=== PATIENT | male | born 1980 | race Caucasian/White ===

== ENCOUNTER 2019-03-13 10:47 | Emergency (ER) | payer SELFPAY ==
[~2019-03-13] VITALS: Ht 167.6 cm; Wt 72.0 kg
[~2019-03-13 10:47] MED LIST: LISI-186 PO
[2019-03-13] MEDS ORDERED: HYDROCODONE/ACETAMINOPHEN 5/325MG TABLET PO ONE (11:15)
[2019-03-13] MEDS ORDERED: ONDANSETRON 4MG ODT PO ONE (11:15)
[2019-03-13 12:37] VITALS: BP 136/84
== END 2019-03-13 12:38 | disposition home or self-care (01) ==
LOC: ER 10:47
DX: M79.642 Pain in left hand (principal); I10 Essential (primary) hypertension; E78.00 Pure hypercholesterolemia, unspecified; Z88.0 Allergy status to penicillin
CPT/HCPCS: 73130; 99283; Q0162